=== PATIENT | male | born 1935 | race Caucasian/White ===

== ENCOUNTER 2016-05-16 11:58 | Inpatient (IN) ==
[~2016-05-16 11:58] MED LIST: metOLazone 2.5 MG TABLET PO SCH
--- NOTE | 2016-05-16 12:13 | Emergency Department Note ---
Disposition Clinical Impression: Peripheral edema, Elevated troponin, CKD (chronic kidney disease), stage III Acute CHF (congestive heart failure) Qualifiers: Congestive heart failure type: unspecified congestive heart failure type Qualified Code(s): I50.9 - Heart failure, unspecified Disposition: Admitted As Inpatient Condition: Fair [facility]: [facility]Primary Care Provider[facility] - Forms: ED Satisfaction Letter Time of Disposition: 12:16 General Adult HPI - General Chief complaint: ED Recheck/Abnormal Lab/Rx Stated complaint: Elevated trop Time Seen by Provider: 05/16/16 12:00 Source: patient, EMS Limitations: no limitations Nursing Notes Reviewed: Yes Vital Signs Reviewed: Yes - History of Present Illness HPI Narrative: Increasing lower extremity edema and some shortness of breath. She has had increasing shortness of breath and fluid retention. Patient has a history of ejection fraction of 40% previous evaluation. Was seen at the [facility] was noted to have an elevated troponin yesterday of 0.13 went back to the [facility] today his troponin went up to 0.15. Chest x-ray shows mild pulmonary edema. His white count today was 3.8, H&H of 11.3/35.6, platelets 1:30. AST was 31, aVL T 25, total bilirubin was 1.6, calcium 8.5, magnesium was 2.7, sodium 144, potassium 3.6, chloride 102, CO2 29, glucose 76, BUNs of 37, creatinine of 2.08, GFR is 32.6. Pt Subjective Complaint: Lower extremity edema increasing shortness of breath Pain Scale: 0 - Related Data Home Medications Medication Instructions Recorded Confirmed Calcitriol [Rocaltrol] 0.25 mcg PO DAILY 10/01/15 10/23/15 Furosemide [Lasix] 40 mg PO BID 10/01/15 10/23/15 GlipiZIDE [Glipizide] 20 mg PO BID 10/01/15 10/23/15 Lisinopril [Zestril] 10 mg PO DAILY 10/01/15 10/23/15 Metoprolol XL (24 HR) Succ [Toprol 25 mg PO DAILY 10/01/15 10/23/15 Xl] Mineral Oil 10 ml PO BID PRN 10/01/15 10/23/15 Simvastatin [Zocor] 20 mg PO HS 10/01/15 10/23/15 Terazosin HCl 2 mg PO HS 10/01/15 10/23/15 Warfarin [Coumadin] 7.5 mg PO DAILY 10/01/15 10/23/15 Multivitamin [Multi-Day Vitamins] 1 each PO QPM 10/23/15 10/23/15 Allergies Allergy/AdvReac Type Severity Reaction Status Date / Time spironolactone AdvReac Cramping Verified 05/16/16 12:01 of the Muscles All systems ED: reviewed and negative except as stated. Constitutional: Denies: fever, chills, weakness, weight change Eyes: Denies: eye pain, eye discharge, vision change ENT ED: Denies: ear pain, throat pain, dental pain, hearing loss, epistaxis, congestion, dysphagia Cardiovascular: Denies: chest pain, palpitations, dyspnea on exertion, edema, syncope Respiratory: Reports: dyspnea. Denies: cough, wheezes, hemoptysis, stridor Gastrointestinal: Denies: abdominal pain, nausea, vomiting, diarrhea, constipation, hematemesis, melena, hematochezia Genitourinary: Denies: urgency, dysuria, frequency, hematuria Musculoskeletal: Reports: other (Lower extremity edema). Denies: back pain, neck pain, arthralgia, myalgia Integumentary: Denies: rash, abrasion, lesions Neurological: Denies: headache, weakness, numbness, paresthesias, confusion, abnormal gait, vertigo Psychiatric: Denies: anxiety, depression, suicidal thoughts, homicidal thoughts , auditory hallucinations, visual hallucinations Endocrine: Denies: fatigue Hematological/Lymphatic: Denies: easy bleeding, easy bruising Allergic/Immunologic: Denies: facial swelling, urticaria Past Medical History - Past Medical History Medical history: Reports: atrial fibrillation, CHF, diabetes, hyperlipidemia, hypertension, renal disease, other Surgical history: Reports: appendectomy Psychiatric history: Reports: depression - Social History Smoking Status: Former smoker Smokeless Tobacco Status: No Alcohol use: Reports: occasionally Drug use: Reports: none Physical Exam - General Limitations: no limitations General appearance: alert - Head Head exam: atraumatic, normocephalic, normal inspection - Eye Eye exam: Present: normal appearance, PERRL, EOMI - ENT ENT exam: normal exam, normal oropharynx, mucous membranes moist - Neck Neck exam: Present: normal inspection, full ROM, trachea midline - Chest Chest inspection: Present: normal inspection, symmetric chest wall rise - Respiratory Respiratory exam: Present: other (Rales) - Cardiovascular Cardiovascular exam: Present: regular rate, normal rhythm, normal heart sounds - Abdominal Exam Abdominal exam: Present: soft, Non-Tender. Absent: tenderness, distention, guarding, rebound, rigidity - Extremities Exam Extremities exam: Present: normal inspection, full ROM. Absent: tenderness, pedal edema - Expanded Lower Extremity Exam Neurovascular/Tendon exam: Absent: motor deficit, sensory deficit, tendon deficit Gait: not tested/not observed - Back Exam Back exam: Present: normal inspection, full ROM. Absent: tenderness - Neurological Exam Neurological exam: Present: alert, oriented X3 - Psychiatric Psychiatric exam: Present: normal affect, normal mood - Skin Skin exam: Present: warm, dry, intact, normal color Course - Reevaluation(s) Reevaluation #1: 81-year-old who was seen for shortness of breath at the [facility] yesterday was found to have a troponin 0.13. Patient left AGAINST MEDICAL ADVICE came back today and his troponin was low higher 0.15. Patient denies chest pain but does have shortness of breath. Chest x-ray does show congestive changes. I do note previous troponins done a couple months ago were both in the 0.15 range. It's unclear whether this is related to renal insufficiency that he does have versus cardiac leak. It was trending up so we will admit him diurese and determine if this troponin is truly related to ischemic disease versus poor clearance. Time: 13:41 - Consultations Consultation #1: Discussed with , admit. Time: 13:40 Vital Signs Temperature 97.6 F 05/16/16 12:01 Pulse Rate 80 05/16/16 12:01 Respiratory Rate 16 05/16/16 12:01 Blood Pressure 122/91 05/16/16 12:01 O2 Sat by Pulse Oximetry 98 05/16/16 12:01 Temperature 97.6 F 05/16/16 12:01 Pulse Rate 80 05/16/16 12:01 Respiratory Rate 16 05/16/16 12:01 Blood Pressure 122/91 05/16/16 12:01 O2 Sat by Pulse Oximetry 98 05/16/16 12:01 Oxygen Delivery Oxygen Delivery Room Air Medical Decision Making - EKG Data EKG #1 EKG shows normal: sinus rhythm Rate: normal Rhythm: NSR [place]/QRS: RBBB Interpretation: no acute changes
[2016-05-16] MEDS ORDERED: Furosemide 40 MG/4 ML VIAL IVP ONE (12:15)
[2016-05-16] MEDS ORDERED: Naloxone 0.4 MG/ML INJ IVP PRN (14:22)
[2016-05-16] MEDS ORDERED: Acetaminophen 325 MG TABLET PO PRN (14:22)
[2016-05-16] MEDS ORDERED: *HR* Dextrose 50 % in Water (Syg) 50 ML SYRINGE IVP PRN (14:30)
[2016-05-16] MEDS ORDERED: D5% in Water 1,000 ML IVC PRN (14:30)
[2016-05-16] MEDS ORDERED: Dextrose Gel 15 GM PO PRN ×2 (14:30)
--- NOTE | 2016-05-16 14:36 | Internal Med History&Physical ---
<Ana Gilman - Last Filed: 05/16/16 14:31> Date of Encounter: 05/16/16 Time of Encounter: 14:31 Assessment and Plan (1) Acute on chronic diastolic (congestive) heart failure Current visit: Yes Status: Acute Patient reports gradually increasing dyspnea on exertion, BLE edema and new swelling in his scrotum. CXR reveals stable cardiomegaly with findings suggestive of pulmonary edema. On exam, he has fine crackles in the bases and + 2 BLE edema. Continue home dose of metolazone Lasix 40mg IVP BID daily weights strict I/Os Cardiac diet with 1.5L fluid restriction. (2) Elevated troponin Current visit: Yes Status: Acute Patient's troponin was 0.13 yesterday and 0.15 today. Patient had a cardiac cath 10/23/15 which showed mild CAD with 15% stenosis in the LAD, 15% stenosis in the rCA and the circumflex was free of disease. Patient's troponin elevation may be demand ischemia related to his acute on chronic CHF. Patient also has CKD which may contribute to troponin elevation. Continuous monitor worker. serial troponins for trend. (3) DM type 2 (diabetes mellitus, type 2) Current visit: No Status: Acute Hold Glipizide check Hgb A1c diabetic, heart healthy diet check blood sugars ACHS sliding scale correction dose insulin ACHS hypoglycemic protocol Qualifiers: Diabetes mellitus complication status: without complication Diabetes mellitus termination clerk insulin use: without halfway use Qualified Code(s): E11.9 - Type 2 diabetes mellitus without complications (4) Hypertension Current visit: No Status: Acute Blood pressure has been controlled since arrival. Hold lisinopril for CHALINO. Continue home doses of metoprolol. Qualifiers: Hypertension type: essential hypertension Qualified Code(s): I10 - Essential (primary) hypertension (5) Atrial fibrillation with normal ventricular rate Current visit: No Status: Chronic Patient with chronic afib, on metoprolol for rate control and coumadin for anticoagulation. Rate is controlled, continue home dose of metoprolol. INR is supratherapeutic at 4.2. Pharmacy to dose coumadin. (6) Acute kidney injury superimposed on CKD Current visit: Yes Status: Acute Patient with CKD stage 3. Cr 2.08 today, up from baseline of 1.6. Most recent previous value was 1.97 on 02/20/16. Hold lisinopril. avoid NSAIDs and nephrotoxins recheck chemistry in the morning. (7) Supratherapeutic INR Current visit: Yes Status: Acute Patient's INR measured 4.2. Patient denies any signs or symptoms of bleeding. Hgb stable at 11.3. Will recheck INR and have pharmacy dose patient's coumadin. (8) DVT prophylaxis Current visit: Yes Status: Acute encourage ambulation anti-embolic stockings Patient on coumadin for afib, and INR is supratherapeutic. Additional pharmacologic prophylaxis is not indicated. Internal Medicine - H&P: HPI Chief complaint: shortness of breath Admitted From: Emergency Dept Plans for Post Hospital Care: Home History of present illness: Mr. Garibay is a 81 year old male hypertension, hyperlipidemia, type 2 diabetes, chronic kidney disease stage III, atrial fibrillation on Coumadin, congestive heart failure was sent to the ED from the [facility] with complaints of increasing lower extremity edema, scrotal edema, and increasing shortness of breath. Patient reports she has been noticing a gradual increase in his symptoms over the last month or so. He describes shortness of breath on exertion, only able to walk a few steps before he becomes short of breath. Increased swelling in his lower extremities. He reports that a week ago he woke up one morning and had swelling in his scrotum, which has remained. He also describes occasional double vision over the last few months. He denies any headache, lightheadedness , chest pain, palpitations, cough, nausea, vomiting, fever, chills, sweats. [facility], but left [facility] because he needed to take care of some things at home before he was admitted to the hospital. He represented today. Evaluation done at the [facility] revealed elevated troponin yesterday of 0.13, today of 0.15. EKG showed atrial fibrillation with controlled rate and right bundle branch block. Patient appears to have acute kidney injury on top of his chronic kidney disease, creatinine of 2.08 up from his baseline of approximately 1.6. His INR is supratherapeutic at 4.2. Chest x -ray showed stable cardiomegaly with findings suggestive of pulmonary edema. Patient is satting 95-98% on room air. On exam, patient is alert and oriented, in no acute distress. Lungs are clear to auscultation except for some fine crackles in the bases. His heart has irregular rhythm with normal rate. Bilateral lower extremities have +2 pitting edema. Past Med Surg Social Fam HX - Past Medical History Medical history: atrial fibrillation, CHF, diabetes, hyperlipidemia, hypertension, renal disease, other Psychiatric history: depression - Past Surgical History Surgical History: appendectomy - Social History Smoking Status: Former smoker (43 Pack year history) Smokeless Tobacco Status: No Alcohol use: occasionally Drug use: none - Family History Father Living Status: Internal Medicine - H&P: Meds Calcitriol [Rocaltrol] 0.25 mcg PO DAILY 10/01/15 [History] Furosemide [Lasix] 40 mg PO BID 10/01/15 [History] GlipiZIDE [Glipizide] 20 mg PO BID 10/01/15 [History] Mineral Oil 10 ml PO BID PRN 10/01/15 [History] Simvastatin [Zocor] 20 mg PO HS 10/01/15 [History] Terazosin HCl 2 mg PO HS 10/01/15 [History] Warfarin [Coumadin] 7.5 mg PO SUTUWETHSA 10/01/15 [History] Multivitamin [Multi-Day Vitamins] 1 tab PO QPM 10/23/15 [History] Aspirin [Lo-Dose Aspirin EC] 81 mg PO DAILY 05/16/16 [History] Lisinopril [Zestril] 5 mg PO DAILY 05/16/16 [History] Melatonin/Pyridoxine HCl (B6) [Melatonin 3 mg Tablet] 6 mg PO HS 05/16/16 [ History] Metolazone [Zaroxolyn] 2.5 mg PO MOWEFR 05/16/16 [History] Metoprolol XL (24 HR) Succ [Toprol XL] 100 mg PO DAILY 05/16/16 [History] Sildenafil Citrate [Viagra] 25 mg PO AD PRN 05/16/16 [History] Temazepam [Restoril] 15 mg PO HS 05/16/16 [History] Warfarin [Coumadin] 5 mg PO MOFR 05/16/16 [History] Allergies spironolactone Adverse Reaction (Verified 05/16/16 12:01) Cramping of the Muscles All Systems PM: A 10-system review of systems was performed and is negative for pertinent findings except as documented above in the HPI. - Constitutional Constitutional: no chills, no fever(s), no night sweats - EENT Eyes: diplopia (occasional), no change in vision, no discharge, no pain, no photophobia Ears: no ear discharge, no ear pain, no tinnitus Nose, mouth and throat: no dysphagia, no nasal discharge, no neck pain, no sore throat - Cardiovascular Cardiovascular ROS IM: dyspnea on exertion, edema, no chest pain, no diaphoresis , no dyspnea, no lightheadedness, no palpitations, no syncope - Respiratory Respiratory: dyspnea on exertion, no cough, no dyspnea, no wheezing, no excessive phlegm production - Gastrointestinal Gastrointestinal: no abdominal pain, no diarrhea, no hematemesis, no hematochezia, no melena, no nausea, no vomiting - Genitourinary Genitourinary ROS male: scrotal swelling - Musculoskeletal Musculoskeletal ROS IM: no numbness, no tingling - Integumentary Integumentary IM: no rash, no unusual bruising - Neurological Neurological ROS: no confusion, no convulsions, no focal weakness, no numbness, no tingling, no tremor(s) - Hematologic/Lymphatic Hematologic/Lymphatic: no easy bruising - Constitutional Vitals: Temp Pulse Resp BP Pulse Ox 97.6 F 80 16 122/91 98 05/16/16 12:01 05/16/16 12:01 05/16/16 14:22 05/16/16 14:22 05/16/16 12:01 General appearance: Present: A&O X 3, pleasant, no acute distress - Head Head exam: Present: atraumatic, normocephalic - Eye Eye exam: Present: PERRL, conjuntiva pink, sclera anicteric Pupils: Present: PERRL - Neck Neck exam general surgery: Present: supple, trachea midline. Absent: lymphadenopathy - Respiratory Respiratory exam: Absent: accessory muscle use, rales, rhonchi, wheezes Additional comments: Clear bilaterally except for fine crackles in bilateral bases. - Cardiovascular Cardiovascular exam: Present: irregular rhythm, +S1, +S2. Absent: diastolic murmur, gallop, rubs, systolic murmur - GI/Abdominal GI/Abdominal exam: Present: normal bowel sounds, soft, no peritoneal signs. Absent: distended, tenderness - Extremities Exam Extremities exam: Present: pedal edema, warm, radial pulses palpable and symetrical. Absent: calf tenderness, cyanotic Additional comments: +2 BLE pitting edema - Neurological Exam Neurological exam: Present: CN II-XII intact, oriented X3, no focal deficits. Absent: facial droop, speech deficit - Skin Skin exam: Present: dry, intact Internal Med - H&P Results - Labs Labs: [facility]: WBC 3.8 Hgb 11.3 Hct 35.6 Plt 130 Na 144 K 3.6 Cl 102 Co2 29 BUN 37 Cr 2.08 Glu 76 PT 41.7 INR 4.2 PTT 37.7 - Diagnostic Studies Chest x-ray Additional comments: [facility]: Stable cardiomegaly with findings suggestive of pulmonary edema <Papito Donald - Last Filed: 05/16/16 17:41> Date of Encounter: 05/16/16 Internal Medicine - H&P: HPI History of present illness: Mr. Garibay is a 81 year old male All Systems PM: A 10-system review of systems was performed and is negative for pertinent findings except as documented above in the HPI. - Constitutional Vitals: Temp Pulse Resp BP Pulse Ox 97.9 F 85 18 119/70 94 05/16/16 15:16 05/16/16 15:16 05/16/16 15:16 05/16/16 15:16 05/16/16 15:16 Internal Med - H&P Results - Labs Labs: Cardiac Enzymes 05/16/16 Range/Units 14:51 Troponin I 0.19 H* (0-0.03) ng/mL - Attending Attestation I have independently interviewed and examined this patient. I have reviewed the EMR extensively and discussed plan of care the resident/nurse practitioner with exemptions as stated below. 81 Y/O M with PMH of Afib, CHFrEF (EF 40%), CKD III, presented to the [facility] with complains of SOB and worsening leg edema, no chest pain, no palpitations. He was found to have CHF exacerbation and Elevated troponins with Peak of 0.15. Chem was at baseline, and EKG had no ischemic changes, patient is [facility] and [facility] today with worsening symptoms On evaluation at the bedside, he denies non-compliance with his medications and reports he developed worsening of his lower extremity edema as well as new onset scrotal edema, he denies overt SOB and states I dont stress myself much. Physical exam reveals elderly male sitting up in bed in no form of respiratory distress, speaks full sentences, vitals stable. JVD+, Chest is clear, Heart S1, S2 only, irregular, abdomen is obese but not tender. Extremities: Bilateral pedal edema, up to the knees. exam deferred. Labs and Imaging reviewed mostly: CBC stable, Chem with Cr at baseline, INR supra-therapeutic, EKG with Afib, troponin 0.15 at [facility], 0.19 here. Holter 05/2016 unremarkable, LHC done late last year non-obstructive, ECHO from 01/2016 with EF 50% and indeterminate diastolic dysfunction Assessment/Plan: CHFrEF exacerbation, IV Lasix, monitor chem, daily weights, strict intake/output, hold Coumadin, resume home meds, elevated troponin is possibly from demand as his last cath in 01/2016 was unremarkable for obstructive defect, rest of details as in [employer] documentation.
[2016-05-16 15:06] LABS: INR 4.2
[2016-05-16 15:08] LABS: Activated Partial Thrombo Time 45.5 Seconds (26.0-36.0)
[2016-05-16 15:30] LABS: Hemoglobin A1C 6.4 %
[2016-05-16] MEDS: Insulin LISPRO 300 UNITS/3 ML VIAL SQ SCH ×2 (16:33→21:38)
[2016-05-16] MEDS ORDERED: Warfarin perPT PO PRN (18:00)
--- NOTE | 2016-05-16 18:10 | Electrocardiograph Report ---
[place] [employer] Test Date: 2016-05-16 Pat Name: Andi Garibay Department: 103 Room: 2A32 Gender: M Ase Master Mechanic: : [id number] Requested By: Jayme Gonzales Order Number: [id number] Reading MD: Pedro Luis Vernon MD Measurements Intervals [place] Rate: 72 P: AK: 0 QRS: -47 QRSD: 154 T: -7 QT: 432 QTc: 456 Interpretive Statements ATRIAL FIBRILLATION RIGHT BUNDLE BRANCH BLOCK PROBABLE SEPTAL MYOCARDIAL INFARCTION, OF INDETERMINATE AGE INFERIOR MYOCARDIAL INFARCTION, PROBABLY OLD Electronically Signed On 05-16-2016 18:09:11 EDT by Pedro Luis Vernon MD
[2016-05-16] MEDS: Furosemide 40 MG/4 ML VIAL IVP SCH (21:56)
[2016-05-16] MEDS: Temazepam 15 MG CAPSULE PO SCH (21:56)
[2016-05-17 06:50] LABS: Activated Partial Thrombo Time 44.8 Seconds (26.0-36.0)
[2016-05-17 06:52] LABS: Prothrombin Time 50.3 Seconds (9.4-12.1)
[2016-05-17 06:53] LABS: INR 4.5
[2016-05-17 06:55] LABS: Basophils % 0.3 %; Eosinophils # 0.1 K/mcL (0.0-0.6); Eosinophils % 2.8 %; Hematocrit 32.5 % (37.5-50.1); Hemoglobin 10.3 g/dL (12.9-16.9); Immature Granulocytes % 0.6 % (0-4); Lymphocytes # 0.6 K/mcL (0.6-4.6); Lymphocytes % 19.4 %; Mean Corpuscular HGB Conc 31.7 g/dL (31.6-35.5); Mean Corpuscular Hemoglobin 30.4 pg (28.0-33.3); Mean Corpuscular Volume 95.9 fL (83.0-100.0); Mean Platelet Volume 10.1 fL (9.4-12.4); Monocytes # 0.4 K/mcL (0.0-1.3); Monocytes % 11.9 %; Neutrophils # 2.1 K/mcL (1.6-8.9); Platelet Count 116 K/mcL (140-400); Red Blood Count 3.39 M/mcL (4.19-5.50); Red Cell Distribution Width 13.9 % (11.5-14.5)
[2016-05-17 07:00] LABS: Calcium 8.8 mg/dL (8.6-10.8); Potassium 3.6 mEq/L (3.5-4.5)
[2016-05-17] MEDS: Furosemide 40 MG/4 ML VIAL IVP SCH ×2 (08:59→22:58)
[2016-05-17] MEDS: Metoprolol XL (24 HR) Succ 50 MG TAB.ER.24H PO SCH (08:59)
[2016-05-17] MEDS: Aspirin Enteric Coated 81 MG Tablet PO SCH (09:00)
[2016-05-17] MEDS: Insulin LISPRO 300 UNITS/3 ML VIAL SQ SCH ×4 (09:00→23:01)
[2016-05-17] MEDS: metOLazone 2.5 MG TABLET PO SCH (18:22)
[2016-05-17] MEDS: Temazepam 15 MG CAPSULE PO SCH (22:58)
[2016-05-18 07:37] LABS: Prothrombin Time 32.9 Seconds (9.4-12.1)
[2016-05-18 07:46] LABS: Potassium 3.2 mEq/L (3.5-4.5)
[2016-05-18] MEDS: Insulin LISPRO 300 UNITS/3 ML VIAL SQ SCH ×4 (08:09→21:43)
[2016-05-18] MEDS: Metoprolol XL (24 HR) Succ 50 MG TAB.ER.24H PO SCH (08:16)
[2016-05-18] MEDS: metOLazone 2.5 MG TABLET PO SCH (08:17)
[2016-05-18] MEDS: Furosemide 40 MG/4 ML VIAL IVP SCH ×2 (08:17→21:42)
[2016-05-18] MEDS: Aspirin Enteric Coated 81 MG Tablet PO SCH (08:17)
--- NOTE | 2016-05-18 13:14 | Internal Med Progress Note ---
Date of Encounter: 05/18/16 Time of Encounter: 13:12 - Assessment and plan (1) Acute CHF (congestive heart failure) Status: Acute Assessment and plan: noted to have 2-3lb weight loss; continue IV Lasix along with fluid restriction , daily weights and strict urine output monitoring; continue beta-saeid, supplemental O2; patient does not follow fluid restriction and low sodium diet strictly as an outpatient; continue to monitor; F/up Echocardiogram, Cardiology consult regarding further workup due to Troponin leak and sudden weight gain; Qualifiers: Congestive heart failure type: diastolic Qualified Code(s): I50.31 - Acute diastolic (congestive) heart failure (2) Elevated troponin Status: Acute Assessment and plan: Troponins now trending down; likely due to demand ischemia; (3) Hypertension Status: Chronic Qualifiers: Hypertension type: essential hypertension Qualified Code(s): I10 - Essential (primary) hypertension (4) DM type 2 (diabetes mellitus, type 2) Status: Chronic Qualifiers: Diabetes mellitus complication status: with kidney complications Diabetes mellitus complication detail: with chronic kidney disease Diabetes mellitus oil heaterman insulin use: without oil heaterman use Chronic kidney disease stage: stage 3 (moderate) Qualified Code(s): E11.22 - Type 2 diabetes mellitus with diabetic chronic kidney disease; N18.3 - Chronic kidney disease, stage 3 ( moderate) (5) CKD (chronic kidney disease), stage III Status: Chronic (6) Atrial fibrillation with normal ventricular rate Status: Chronic Assessment and plan: continue beta-saeid and senior living anticoagulation with Coumadin; (7) Supratherapeutic INR Status: Resolved - Subjective Interval history: Feels better. Improving leg swelling and shortness of breath. Having appropriate urine output, has around 3 pound weight loss. No chest pain or palpitations. Continues to require supplemental oxygen. - Constitutional Vitals: Temp Pulse Resp BP Pulse Ox 98.2 F 82 14 100/61 96 05/18/16 07:44 05/18/16 07:44 05/18/16 07:44 05/18/16 07:44 05/18/16 07:44 General appearance: Present: A&O X 3, answers questions appropriately - Respiratory Respiratory exam: Present: CTAB. Absent: accessory muscle use, rales, rhonchi, wheezes - Cardiovascular Cardiovascular exam: Present: irregular rhythm, +S1, +S2. Absent: diastolic murmur, gallop, rubs, systolic murmur - GI/Abdominal GI/Abdominal exam: Present: normal bowel sounds, soft, no peritoneal signs. Absent: distended, tenderness - Extremities Exam Extremities exam: Present: full ROM, pedal edema (Improving, 2+ pitting pedal edema), warm, radial pulses palpable and symetrical. Absent: calf tenderness, cyanotic Internal Medicine: Result - Labs CBC & Chem 7: 05/17/16 06:27 05/19/16 04:41 Labs: BMP 05/18/16 06:47 Sodium 140 Potassium 3.2 L Chloride 101 Carbon Dioxide 27 BUN 40 H Creatinine 2.17 H Glucose 109 H Calcium 9.0 Cardiac Enzymes 05/17/16 Range/Units 16:02 Troponin I 0.20 H* (0-0.03) ng/mL - ABG Interpretation ABG results: PT/INR, D-dimer PT 32.9 Seconds (9.4-12.1) H 05/18/16 06:47 Consult Discharge Plan - Plan Instructions: Potassium Chloride (By mouth), Heart Failure (DC) Additional Instructions: F/up with [facility] in 2-3 weeks [facility]errals: [facility] [Primary Care Provider] - Prescriptions: Potassium Chloride [K-Tab ER] 10 meq PO DAILY #30 tablet.er
[2016-05-18] MEDS ORDERED: *HR* Warfarin 5 MG TABLET PO ONE (18:00)
[2016-05-18] MEDS: Temazepam 15 MG CAPSULE PO SCH (21:42)
[2016-05-19 05:27] LABS: INR 2.2; Prothrombin Time 24.3 Seconds (9.4-12.1)
[2016-05-19 05:38] LABS: Calcium 9.4 mg/dL (8.6-10.8)
[2016-05-19] MEDS: Insulin LISPRO 300 UNITS/3 ML VIAL SQ SCH ×2 (07:45→13:32)
[2016-05-19] MEDS: Aspirin Enteric Coated 81 MG Tablet PO SCH (07:45)
[2016-05-19] MEDS: Furosemide 40 MG/4 ML VIAL IVP SCH (07:45)
[2016-05-19] MEDS: Metoprolol XL (24 HR) Succ 50 MG TAB.ER.24H PO SCH (07:46)
[2016-05-19] MEDS: metOLazone 2.5 MG TABLET PO SCH (07:46)
--- NOTE | 2016-05-19 10:31 | ECHO - Doppler Report ---
Limited Echocardiogram Name: Andi Garibay Date of Study: 05/18/2016 Date: 1935 Ht: 74.0 in Medical Record#: [id number] Age: 81 Wt: 241.0 lb Gender: Male BSA: 2.35 Order #: [id number] Location: [facility] Room #: 2A32 Reading Physician: Xavi Hardwick DO, FACC, FASE, FASNC [place]: Roxy Mirza RDCS Ordering Physician: Ana Weaver MD Primary Physician: [facility] Indications: Shortness of breath, Weight Gain, Leg Swelling Impressions: LVEF 60%. Normal LV chamber size and function. Moderate concentric left ventricular hypertrophy. Left Ventricular Wall Motion: Rest Echo Findings All wall segments showed normal motion. Findings: Study Quality * Technically adequate exam. ECG Findings * Atrial fibrillation. Left Ventricle * LVEF 60%. * Normal LV chamber size and function. * Moderate concentric left ventricular hypertrophy. Right Ventricle * Mildly dilated right ventricle. * Mild right ventricular hypokinesis. IVC * The IVC is not well evaluated. Pericardium * There is a trivial pericardial effusion present. History Hypertension Diabetes Hypercholesteremia Years 43 Packs Congestive Heart Failure 01/28/2016 a Previous Echo was performed. Measurements: BP: 121/ 75 2D Normal Values RVIDd: 3.92 cm <2.7 cm IVSd: 1.40 cm 0.6 - 1.0 cm LVIDd: 5.61 cm 3.7 - 5.6 cm LVPWd: 1.40 cm 0.6 - 1.1 cm LVIDs: 3.78 cm 1.5 - 3.6 cm LA: 5.50 cm 2.0 - 4.0cm %FS: 32.60 cm >25 % LA volume: Updated by Xavi Hardwick DO, FACC, FASE, FASNC on 05/19/2016 10:24:51 AM electronically signed on 05/19/2016 10:26:54 AM with status of Final Wall Motion Bejarano: 1=Normal, 2=Hypokinesis, 3=Akinesis, 4=Dyskinesis, 5=Aneurysmal, 6=Hyperkinetic, X=Not Visualized (Blank)=Missing
[2016-05-19 11:10] VITALS: BP 115/74
--- NOTE | 2016-05-19 13:16 | Cardiology Consult Note ---
Date of Encounter: 05/19/16 Time of Encounter: 13:11 Assessment and Plan (1) Acute CHF (congestive heart failure) Status: Acute Since admission has been on lasix 40 IV BID. Takes oral lasix 40 BID at home. Has had negative 4L fluid balance on stay (negative 2kg weight loss since admission) Echo on 05/18/16 shows LVEF of 60% with concentric hypertrophy, likely related to diastolic CHF Spoke at length with the patient about sodium intake and the need to contact a physician if his home weights are increasing. Recommend medical management. Qualifiers: Congestive heart failure type: diastolic Qualified Code(s): I50.31 - Acute diastolic (congestive) heart failure (2) Elevated troponin Status: Acute Troponin on admission 0.19, 0.23, 0.2. No chest pain or dyspnea at rest. Troponin in the setting of acute on chronic CKD. Prior troponin elevated at similar level during last stay Recent Cath in 10/2015 which showed mild CAD with 15% in LAD and 15% in RCA Elevated likely due to CHF exacerbation and acute on chronic CKD. Recommend medical management. (3) Atrial fibrillation with normal ventricular rate Status: Chronic Chronic atrial fibrillation on metoprolol and coumadin. Rate controlled Recommend to continue both. Discussion w patient/family: The assessment and plan as outlined above was discussed with the patient and/or family members who expressed understanding and agreement. All questions were answered. Thank you for involving us in the care of your patient. Please call with any questions. History of Present Illness Consult date: 05/19/16 Consult reason: elevated troponin Chief complaint: Weight gain/swelling History of present illness: Mr. Garibay is a 81 year old male who presented to the [place] (and transferred to [place] ) due to 5 pound weight gain with edema of the legs/scrotum and mild dyspnea with exertion over 1 month. Known PMH of diastolic CHF with preserved EF. Known CKD III. Denied having any chest pain. Troponin elevated at .19 on presentation. Since that time he has been diuresed with 40mg lasix BID. I/O's show a negative balance of 4 liters since admission. Weight is down 2kg from admission. He reports near resolution of his scrotal edema, abdominal fullness , and improved LE edema. He reports eating a significant amount of sodium in the last month and particularly enjoys potato chips. Denies chest pain or syncope or pre-syncope Past Med Surg Social Fam HX - Past Medical History Medical history: atrial fibrillation, CHF, diabetes, hyperlipidemia, hypertension, renal disease, other Psychiatric history: depression - Past Surgical History Surgical History: appendectomy - Social History Smoking Status: Former smoker Smokeless Tobacco Status: No Alcohol use: occasionally Drug use: none - Family History Father Living Status: Medications and Allergies Calcitriol [Rocaltrol] 0.25 mcg PO DAILY 10/01/15 [History] Furosemide [Lasix] 40 mg PO BID 10/01/15 [History] GlipiZIDE [Glipizide] 20 mg PO BID 10/01/15 [History] Mineral Oil 10 ml PO BID PRN 10/01/15 [History] Simvastatin [Zocor] 20 mg PO HS 10/01/15 [History] Terazosin HCl 2 mg PO HS 10/01/15 [History] Warfarin [Coumadin] 7.5 mg PO SUTUWETHSA 10/01/15 [History] Multivitamin [Multi-Day Vitamins] 1 tab PO QPM 10/23/15 [History] Aspirin [Lo-Dose Aspirin EC] 81 mg PO DAILY 05/16/16 [History] Lisinopril [Zestril] 5 mg PO DAILY 05/16/16 [History] Melatonin/Pyridoxine HCl (B6) [Melatonin 3 mg Tablet] 6 mg PO HS 05/16/16 [ History] Metolazone [Zaroxolyn] 2.5 mg PO MOWEFR 05/16/16 [History] Metoprolol XL (24 HR) Succ [Toprol Xl] 100 mg PO DAILY 05/16/16 [History] Sildenafil Citrate [Viagra] 25 mg PO AD PRN 05/16/16 [History] Temazepam [Restoril] 15 mg PO HS 05/16/16 [History] Warfarin [Coumadin] 5 mg PO MOFR 05/16/16 [History] Potassium Chloride [K-Tab ER] 10 meq PO DAILY #30 tablet.er 05/19/16 [Rx] Allergies spironolactone Adverse Reaction (Verified 05/16/16 12:01) Cramping of the Muscles All Systems Review: A 10-system review of systems was performed and is negative for pertinent findings except as documented above in the HPI. - Constitutional Constitutional: weight gain, no fever(s), no headache(s), no weakness - EENT Eyes: no loss of vision Nose, mouth and throat: no bleeding gums - Cardiovascular Cardiovascular: dyspnea on exertion, no chest pain at rest, no chest pain with exertion, no claudication, no dyspnea at rest, no palpitations - Respiratory Respiratory: dyspnea, no cough - Gastrointestinal Gastrointestinal: other (abdominal fullness), no diarrhea - Genitourinary Genitourinary: no dysuria - Integumentary Integumentary: no erythema - Hematological/Lymphatic Hematologic/Lymphatic: no easy bleeding Physical Examination General: Conversant, No Apparent Distress HEENT: Atraumatic, Normocephaly, Mucus Membranes Moist Neck: No JVD Cardiac: Reg Rate and Rhythm, Normal S1 and S2, No Murmur Lungs: Normal Breath Sounds, No Wheeze, Rales, Rhonchi Neuro: Alert and responsive, No focal deficits noted Abdomen: Soft Skin: No rashes noted on visualized skin Extremities: No Cyanosis, Other (+1 bilateral pitting LE edema. Mild scrotal edema present.) Results 05/17/16 06:27 05/19/16 04:41 Lab Results 05/19/16 05/19/16 04:41 04:41 INR 2.2 Sodium 140 Potassium 3.0 L Chloride 97 L Carbon Dioxide 31 H BUN 50 H D Creatinine 2.34 H Glucose 138 H Calcium 9.4 Consult Discharge Plan - Plan Instructions: Potassium Chloride (By mouth), Heart Failure (DC) Additional Instructions: F/up with [facility] in 2-3 weeks [facility]: [facility] [Primary Care Provider[facility] - Prescriptions: Potassium Chloride [K-Tab ER] 10 meq PO DAILY #30 tablet.er
--- NOTE | 2016-05-19 13:47 | Discharge Summary ---
Date of Encounter: 05/19/16 Time of Encounter: 13:43 - Discharge Diagnosis (1) Acute CHF (congestive heart failure) Priority: Primary Status: Acute Qualifiers: Congestive heart failure type: diastolic Qualified Code(s): I50.31 - Acute diastolic (congestive) heart failure (2) Elevated troponin Priority: Primary Status: Acute (3) Hypertension Priority: Secondary Status: Chronic Qualifiers: Hypertension type: essential hypertension Qualified Code(s): I10 - Essential (primary) hypertension (4) DM type 2 (diabetes mellitus, type 2) Priority: Secondary Status: Chronic Qualifiers: Diabetes mellitus complication status: with kidney complications Diabetes mellitus complication detail: with chronic kidney disease Diabetes mellitus fdc insulin use: without intermediate teacher use Chronic kidney disease stage: stage 3 (moderate) Qualified Code(s): E11.22 - Type 2 diabetes mellitus with diabetic chronic kidney disease; N18.3 - Chronic kidney disease, stage 3 ( moderate) (5) CKD (chronic kidney disease), stage III Priority: Secondary Status: Chronic (6) Atrial fibrillation with normal ventricular rate Priority: Secondary Status: Chronic (7) Supratherapeutic INR Priority: Primary Status: Resolved - Discharge Medications Prescriptions: Potassium Chloride [K-Tab ER] 10 meq PO DAILY #30 tablet.er Home Medications: Calcitriol [Rocaltrol] 0.25 mcg PO DAILY 10/01/15 [History] Furosemide [Lasix] 40 mg PO BID 10/01/15 [History] GlipiZIDE [Glipizide] 20 mg PO BID 10/01/15 [History] Mineral Oil 10 ml PO BID PRN 10/01/15 [History] Simvastatin [Zocor] 20 mg PO HS 10/01/15 [History] Terazosin HCl 2 mg PO HS 10/01/15 [History] Warfarin [Coumadin] 7.5 mg PO SUTUWETHSA 10/01/15 [History] Multivitamin [Multi-Day Vitamins] 1 tab PO QPM 10/23/15 [History] Aspirin [Lo-Dose Aspirin EC] 81 mg PO DAILY 05/16/16 [History] Lisinopril [Zestril] 5 mg PO DAILY 05/16/16 [History] Melatonin/Pyridoxine HCl (B6) [Melatonin 3 mg Tablet] 6 mg PO HS 05/16/16 [ History] Metolazone [Zaroxolyn] 2.5 mg PO MOWEFR 05/16/16 [History] Metoprolol XL (24 HR) Succ [Toprol Xl] 100 mg PO DAILY 05/16/16 [History] Sildenafil Citrate [Viagra] 25 mg PO AD PRN 05/16/16 [History] Temazepam [Restoril] 15 mg PO HS 05/16/16 [History] Warfarin [Coumadin] 5 mg PO MOFR 05/16/16 [History] Potassium Chloride [K-Tab ER] 10 meq PO DAILY #30 tablet.er 05/19/16 [Rx] Allergies/Adverse Reactions: Allergies spironolactone Adverse Reaction (Verified 05/16/16 12:01) Cramping of the Muscles Procedures/tests Complete & Pending: Procedures Performed prior 72 hours Category Date Time Status EV limited echocardiogram Routine Y 05/18/16 10:00 Completed Date of admission: 05/16/16 14:01 Primary care physician: PCP [facility] Consults: 05/19/16 11:59 Consult to Cardiology [CONS] Routine Comment: Consulting Provider: [facility] Reason for Consult: Acute CHF, elevated troponin Call Completed: Yes Discharging clinician: Eulalia Weaver Anticipated date of discharge: 05/19/16 - Patient Status Disposition: Home, Self-Care Condition: Fair Functional capacity at discharge: independent ambulation Overall status at discharge: patient is progressing back to baseline - Discharge Instructions Instructions: Potassium Chloride (By mouth), Heart Failure (DC) [facility]: [facility] [[facility] Care Provider[facility] - Additional Instructions: F/up with [facility] in 2-3 weeks - Diet and Activity Activity: resume usual activities as tolerated Diet: diabetic diet, low fat, low cholesterol, low salt diet (fluid restriction to 1.5L/day) Hospital course: Mr. Garibay is a 81 year old male with the above medical problems, admitted with acute CHF. He had significant weight gain and pedal edema and hypoxia at admission. He was started on IV Lasix and fluid restriction with good urine output and weight loss of about 4-5 lbs. Telemetry monitoring was uneventful although he did have a mild Troponin elevation at admission. which is likely demand ischemia due to acute CHF. O2 requirements improved and he is currently not requiring any supplemental O2. Echocardiogram was done which showed preserved EF and moderate concentric LVH. He had supratherapeutic INR at admission with no bleeding, and it is currently therapeutic now, Coumadin is being continued. Cardiology was consulted and agree with the above management, recommend to f/up as outpatient. He is medically stable for discharge. - Time Spent with Patient Total time spent providing and/or coordinating discharge services: Greater than 30 minutes (50 min) - Constitutional Vitals: Temp Pulse Resp BP Pulse Ox 98.3 F 78 18 115/74 93 05/19/16 07:49 05/19/16 07:49 05/19/16 07:49 05/19/16 07:49 05/19/16 08:09 General appearance: Present: A&O X 3, answers questions appropriately - Respiratory Respiratory exam: Present: CTAB. Absent: accessory muscle use, rales, rhonchi, wheezes - Cardiovascular Cardiovascular exam: Present: irregular rhythm, +S1, +S2. Absent: diastolic murmur, gallop, rubs, systolic murmur
--- NOTE | 2016-05-19 15:11 | Physician Discharge Referral ---
Home Health/Hosp Referral Info Transfer to: Home Health Attending Provider: Eulalia Weaver Provider in Charge Post Discharge: PCP - Diagnosis (1) Acute CHF (congestive heart failure) Priority: Primary Status: Acute (2) Elevated troponin Priority: Primary Status: Acute (3) Hypertension Priority: Secondary Status: Chronic (4) DM type 2 (diabetes mellitus, type 2) Priority: Secondary Status: Chronic (5) CKD (chronic kidney disease), stage III Priority: Secondary Status: Chronic (6) Atrial fibrillation with normal ventricular rate Priority: Secondary Status: Chronic (7) Supratherapeutic INR Priority: Primary Status: Resolved - Respiratory Orders Smoking Cessation: Smoking cessation has been advised. For more information, call the [employer] Tobacco Quit Line at 2-504-MXWH-NOW. - Diet/Nutrition Diet/Nutrition Orders: No Added Salt (JUSTO), Cardiac (fluid restriction to 1.5L/ day), No Concentrated Sweets (diabetic) - Activity Activity Orders: Ambulate - Services Needed Following services are medically necessary services: Nursing, Home Health Aide, Physical Therapy, Occupational Therapy - Transfer Medications Prescriptions: Potassium Chloride [K-Tab ER] 10 meq PO DAILY #30 tablet.er Home Medications: Calcitriol [Rocaltrol] 0.25 mcg PO DAILY 10/01/15 [History] Furosemide [Lasix] 40 mg PO BID 10/01/15 [History] GlipiZIDE [Glipizide] 20 mg PO BID 10/01/15 [History] Mineral Oil 10 ml PO BID PRN 10/01/15 [History] Simvastatin [Zocor] 20 mg PO HS 10/01/15 [History] Terazosin HCl 2 mg PO HS 10/01/15 [History] Warfarin [Coumadin] 7.5 mg PO SUTUWETHSA 10/01/15 [History] Multivitamin [Multi-Day Vitamins] 1 tab PO QPM 10/23/15 [History] Aspirin [Lo-Dose Aspirin EC] 81 mg PO DAILY 05/16/16 [History] Lisinopril [Zestril] 5 mg PO DAILY 05/16/16 [History] Melatonin/Pyridoxine HCl (B6) [Melatonin 3 mg Tablet] 6 mg PO HS 05/16/16 [ History] Metolazone [Zaroxolyn] 2.5 mg PO MOWEFR 04/07/17 [History] Metoprolol XL (24 HR) Succ [Toprol Xl] 100 mg PO DAILY 05/16/16 [History] Sildenafil Citrate [Viagra] 25 mg PO AD PRN 05/16/16 [History] Temazepam [Restoril] 15 mg PO HS 05/16/16 [History] Warfarin [Coumadin] 5 mg PO MOFR 05/16/16 [History] Potassium Chloride [K-Tab ER] 10 meq PO DAILY #30 tablet.er 05/19/16 [Rx] Allergies/Adverse Reactions: Allergies spironolactone Adverse Reaction (Verified 05/16/16 12:01) Cramping of the Muscles Certification: Further, I certify that my clinical findings support that this patient is homebound (i.e. absences from home require considerable and taxing effort and are for medical reasons or anabaptist services or infrequently or short duration when for other reasons) because: Homebound Reason: Leaving home requires considerable and taxing effort due to condition, Severity of cardiac or pulmonary status limits activity tolerance Attestation: My signature below is to certify that this patient is under my care and that I, or nurse practitioner, or a physician's children's nursery assistant working with me, has a face-to -face encounter with this patient.
[2016-05-19] MEDS ORDERED: *HR* Warfarin 5 MG TABLET PO ONE (18:00)
[2016-05-21] MEDS ORDERED: metOLazone 2.5 MG TABLET PO SCH (09:00)
--- NOTE | 2016-05-22 12:13 | Internal Med Progress Note ---
Date of Encounter: 05/17/16 Time of Encounter: 11:30 - Assessment and plan (1) Acute CHF (congestive heart failure) Status: Acute Assessment and plan: continue IV Lasix along with fluid restriction, daily weights and strict urine output monitoring; continue beta-saeid, supplemental O2; patient does not follow fluid restriction and low sodium diet strictly as an outpatient; continue to monitor; he reports that his baseline weight is 131-138lbs and has increased to 148lbs in 2-3 days; check Echocardiogram; Qualifiers: Congestive heart failure type: diastolic Qualified Code(s): I50.31 - Acute diastolic (congestive) heart failure (2) Elevated troponin Status: Acute Assessment and plan: Troponins now trending down; likely due to demand ischemia; (3) Hypertension Status: Chronic Qualifiers: Hypertension type: essential hypertension Qualified Code(s): I10 - Essential (primary) hypertension (4) DM type 2 (diabetes mellitus, type 2) Status: Chronic Assessment and plan: continue Accucheck blood glucose monitoring with sliding scale insulin; diabetic diet; Qualifiers: Diabetes mellitus complication status: with kidney complications Diabetes mellitus complication detail: with chronic kidney disease Diabetes mellitus coding and reimbursement specialist insulin use: without coding and reimbursement specialist use Chronic kidney disease stage: stage 3 (moderate) Qualified Code(s): E11.22 - Type 2 diabetes mellitus with diabetic chronic kidney disease; N18.3 - Chronic kidney disease, stage 3 ( moderate) (5) CKD (chronic kidney disease), stage III Status: Chronic (6) Atrial fibrillation with normal ventricular rate Status: Chronic (7) Supratherapeutic INR Status: Resolved - Subjective Interval history: Improving shortness of breath; no chest pain, palpitations, cough; persistent leg swelling; - Constitutional Vitals: Temp Pulse Resp BP Pulse Ox 98.3 F 78 18 115/74 93 05/19/16 07:49 05/19/16 07:49 05/19/16 07:49 05/19/16 07:49 05/19/16 08:09 General appearance: Present: A&O X 3, answers questions appropriately - Respiratory Respiratory exam: Present: rales (faint bibasal crackles+). Absent: accessory muscle use, rhonchi, wheezes - Cardiovascular Cardiovascular exam: Present: irregular rhythm, +S1, +S2. Absent: diastolic murmur, gallop, rubs, systolic murmur - GI/Abdominal GI/Abdominal exam: Present: normal bowel sounds, soft, no peritoneal signs. Absent: distended, tenderness - Extremities Exam Extremities exam: Present: full ROM, pedal edema (B/L 3+ pitting pedal edema), warm, radial pulses palpable and symetrical. Absent: calf tenderness, cyanotic - Neurological Exam Neurological exam: Present: CN II-XII intact, oriented X3, no focal deficits. Absent: pronater drift, facial droop, speech deficit Internal Medicine: Result - Labs CBC & Chem 7: 05/17/16 06:27 05/19/16 04:41 - ABG Interpretation ABG results: PT/INR, D-dimer PT 24.3 Seconds (9.4-12.1) H 05/19/16 04:41 Consult Discharge Plan - Plan Instructions: Potassium Chloride (By mouth), Heart Failure (DC) Additional Instructions: F/up with [facility] in 2-3 weeks [facility]: [facility] [Primary Care Provider[facility] - Prescriptions: Potassium Chloride [K-Tab ER] 10 meq PO DAILY #30 tablet.er
== END 2016-05-19 14:40 | disposition home or self-care (01) | DRG 291 ==
LOC: EMEROO 11:58 → 2ANU 14:01 → SUATTDRO 14:01 → 2ANU 14:35
PROVIDERS: ADMIT Internal Medicine; ATTEND Internal Medicine